=== PATIENT | female | born 1985 | race Caucasian/White ===

== ENCOUNTER 2017-01-08 13:09 | Emergency (ER) | payer OTHER ==
[2017-01-08 13:45] VITALS: BP 120/83
--- NOTE | 2017-01-08 14:14 | UC ---
Complaint Female HPI - HPI Summary HPI Summary: Rapid onset dysuria, frequency, urgency, and hematuria yesterday. Abbot like past UTIs. Pt usually drinks lots of water and has not seen blood in urine today. Denies fever, vomiting, or back pain. - History Of Current Complaint Chief Complaint: UCGU Stated Complaint: URINARY COMPLAINT Time Seen by Provider: 01/08/17 13:49 Hx Obtained From: Patient Hx Last Menstrual Period: ?: No Onset/Duration: Gradual Onset, Lasting Hours Timing: Constant Severity Initially: Mild Severity Currently: Moderate Character: Burning Aggravating Factor(s): Urination Associated Signs And Symptoms: Negative: Fever, Back Pain, Vaginal Bleeding/ Discharge, Vaginal Discharge, Nausea, Vomiting(# Of Episodes =) - Allergies/Home Medications Allergies/Adverse Reactions: Allergies Allergy/AdvReac Type Severity Reaction Status Date / Time No Known Allergies Allergy Verified 01/08/17 13:45 Home Medications: Home Medications Oxycodone W/ Acetaminophen [Percocet 7.5-325 mg (NF)] 1 tab PO Q6H PRN 01/08/17 [History Confirmed 01/08/17] PMH/Surg Hx/FS Hx/Imm Hx Previously Healthy: Yes - Surgical History Surgical History: Yes Surgery Procedure, Year, and Place: nasal surgery 1995 - Family History Known Family History: Negative: Blood Disorder - Social History Lives: With Family Alcohol Use: None Substance Use Type: Prescribed Smoking Status (MU): Never Smoked Tobacco Review of Systems Constitutional: Negative Skin: Negative Eyes: Negative ENT: Negative Respiratory: Negative Cardiovascular: Negative Gastrointestinal: Negative Genitourinary: Dysuria, Hematuria, Frequency, Urgency Motor: Negative Neurovascular: Negative Musculoskeletal: Negative Neurological: Negative Psychological: Negative All Other Systems Reviewed And Are Negative: Yes Physical Exam Triage Information Reviewed: Yes Appearance: Well-Appearing, No Pain Distress, Well-Nourished Vital Signs: Initial Vital Signs Temp 98.5 F 01/08/17 13:38 Pulse 90 01/08/17 13:38 Resp 16 01/08/17 13:38 BP 120/83 01/08/17 13:38 Pulse Ox 98 01/08/17 13:38 Vital Signs Reviewed: Yes Eye Exam: Normal Eyes: Positive: Conjunctiva Clear ENT Exam: Normal ENT: Positive: Normal ENT inspection, Hearing grossly normal, Pharynx normal, TMs normal Dental Exam: Normal Neck exam: Normal Neck: Positive: Supple, Nontender, No Lymphadenopathy Respiratory Exam: Normal Respiratory: Positive: Chest non-tender, Lungs clear, Normal breath sounds, No respiratory distress, No accessory muscle use Cardiovascular Exam: Normal Cardiovascular: Positive: RRR, No Murmur Abdomen Description: Negative: CVA Tenderness (R), CVA Tenderness (L) Musculoskeletal Exam: Normal Neurological Exam: Normal Neurological: Positive: Alert Psychological Exam: Normal Skin Exam: Normal Complaint Female Dx - Differential Dx/Diagnosis Provider Diagnoses: UTI Discharge - Discharge Plan Condition: Stable Disposition: HOME Prescriptions: Sulfamethox/Trimethoprim SUSP* [Bactrim Susp*] 20 ml PO BID #200 ml Patient Education Materials: Urinary Tract Infection in Women (ED) Referrals: Jw Leal MD [Primary Care Provider] - Additional Instructions: Call or return if you have fever, severe back pain, or if you are not better within 48 hours or so.
--- NOTE | 2017-01-09 16:16 | UC ---
Progress - Progress Note Progress Note: seen at [facility] last pm had allergic rx ro bactrim requests another antibiotic keflex eRx'ed
== END 2017-01-08 14:16 | disposition home or self-care (01) ==
LOC: UCCORT 13:09
DX: N39.0 Urinary tract infection, site not specified (principal); R31.9 Hematuria, unspecified; Z87.440 Personal history of urinary (tract) infections
CPT/HCPCS: 81003; 87086; 99212; G0463